=== PATIENT | female | born 1965 | race Caucasian/White ===

== ENCOUNTER 2016-11-07 12:56 | Emergency (ER) | payer BC ==
[~2016-11-07] VITALS: Ht 162.6 cm; Wt 91.5 kg
[~2016-11-07 12:56] MED LIST: ADVAIR 250/501 DISK IH; FLUOXETINE HCL40 MG PO; LISINOPRIL30 MG PO; OMEPRAZOLE40 M1 PO
[2016-11-07 13:08] VITALS: BP 171/103
== END 2016-11-07 15:22 | disposition left against medical advice (07) ==
LOC: EME 12:56
DX: R93.0 Abnormal findings on diagnostic imaging of skull and head, not elsewhere classified (principal); R51 Headache; H43.399 Other vitreous opacities, unspecified eye; R41.0 Disorientation, unspecified; Z53.21 Procedure and treatment not carried out due to patient leaving prior to being seen by health care provider
CPT/HCPCS: 71020; 80048; 85027

== ENCOUNTER 2016-11-26 17:32 | Observation (INO) | payer BC ==
[~2016-11-26] VITALS: Ht 162.6 cm; Wt 91.7 kg
[2016-11-26 18:40] LABS: BASOPHIL COUNT 0.1 K/uL (0-0.1); EOSINOPHIL (%) 1.7 % (0-5); EOSINOPHIL COUNT 0.2 K/uL (0-0.3); HEMATOCRIT 38.8 % (36.0-46.0); IMMATURE GRANULOCYTE (%) 0.3 % (0.0-0.7); INSTRUMENT ABS NEUTROPHIL CT 5.6 K/uL; LYMPHOCYTE COUNT 3.9 K/uL (1.0-2.8); MCHC 31.7 G/DL (30.0-36.0); MCV 85.3 FL (83-99); MONOCYTE (%) 6.3 % (3-12); MONOCYTE COUNT 0.7 K/uL (0-0.8); NEUTROPHIL (%) 53.6 % (45-76); NEUTROPHIL COUNT 5.6 K/uL (1.8-6.4); PLATELET COUNT 291 K/uL (156-360); RBC DIS.WIDTH-CV 12.6 % (11.8-14.6); RBC DIS.WIDTH-SD 38.8 % (39-53); RED BLOOD COUNT 4.55 M/uL (3.80-5.20); WHITE BLOOD COUNT 10.5 K/uL (4.1-10.2)
[2016-11-26 18:53] LABS: CHLORIDE 105 mEq/L (99-109); POTASSIUM 3.7 mEq/L (3.7-5.4); SODIUM 139 mEq/L (136-147)
[2016-11-26 18:54] LABS: MAGNESIUM 2.2 mg/dL (1.3-2.7)
[2016-11-26 18:55] LABS: GLUCOSE 100 mg/dL (70-99)
[2016-11-26 18:56] LABS: INTER. NORMALIZED RATIO 1.2; PROTHROMBIN TIME 12.3 (9.2-11.2); PTT 32.2 (25-32)
[2016-11-26 18:57] LABS: ANION GAP 12 MEQ/L (2-14)
[2016-11-26 18:59] LABS: GFR ESTIMATE (CALCULATED) > 59 mL/min/
[2016-11-26 19:00] LABS: UREA NITROGEN (BUN) 15 mg/dL (9-23)
[2016-11-26 19:02] LABS: TROP-I INTERPRETATION NEGATIVE; TROPONIN-I < 0.01 ng/mL (0.0-0.30)
[2016-11-26] MEDS ORDERED: NORVASC5 MG PO (21:57)
[2016-11-26] MEDS ORDERED: LIPITOR10 MG PO (21:58)
[2016-11-26] MEDS ORDERED: XARELTO15 MG PO (21:58)
[2016-11-26] MEDS ORDERED: HYDROCHLOROTHIA25 MG PO (21:58)
[2016-11-26] MEDS ORDERED: VALSARTAN160 MG PO (21:58)
[2016-11-26] MEDS ORDERED: CELECOXIB200 MG PO (21:59)
[2016-11-26] MEDS ORDERED: OMEPRAZOLE40 M1 PO (21:59)
[2016-11-26] MEDS ORDERED: PROZAC40 MG PO (22:00)
[2016-11-26 22:46] VITALS: BP 131/77
[2016-11-26 22:46] LABS: Estimated Average Glucose 128 mg/dL (70-123); HEMOGLOBIN A1c (GLYCOHEMOGLOB) 6.1 % HGB (Below 5.7)
[2016-11-26 22:52] LABS: HDL CHOLESTEROL 38 MG/DL (Desirable>=50); LDL CHOLESTEROL 77 mg/dL (Desirable<100); NON-HDL CHOLESTEROL 104 mg/dL (Desirable<160); TOTAL CHOLESTEROL 142 mg/dL (Desirable<200); TRIGLYCERIDES 134 MG/DL (Normal: <150)
[2016-11-27 00:11] LABS: ADD MIUA? YES; BILIRUBIN NEGATIVE; BLOOD SMALL; COLOR STRAW ((YELLOW)); GLUCOSE (STRIP) NEGATIVE; KETONES NEGATIVE; LEUKOCYTES NEGATIVE; NITRITE NEGATIVE; PROTEIN (STRIP) NEGATIVE; SPECIFIC GRAVITY 1.004 (1.000-1.030); UROBILINOGEN 0.2 MG/DL (0.2-1.0)
[2016-11-27 00:14] LABS: BACTERIA NONE SEEN /HPF; EPITHELIAL CELLS RARE /HPF; MUCUS NONE SEEN /LPF; UCUL ADDED? NO; WHITE BLOOD CELLS 0-5 /HPF (0-5)
[2016-11-27 00:16] LABS: RED BLOOD CELLS 15-20 /HPF (0-5)
[2016-11-27 00:46] VITALS: BP 106/67
[2016-11-27 03:44] VITALS: BP 94/57
[2016-11-27 05:13] LABS: HEMATOCRIT 37.2 % (36.0-46.0); MCH 26.6 PG (29.0-34.0); MCHC 30.9 G/DL (30.0-36.0); MCV 85.9 FL (83-99); MEAN PLAT.VOLUME 9.8 uM^3 (9.5-12.4); PLATELET COUNT 243 K/uL (156-360); RBC DIS.WIDTH-CV 12.7 % (11.8-14.6); RBC DIS.WIDTH-SD 39.7 % (39-53); RED BLOOD COUNT 4.33 M/uL (3.80-5.20); WHITE BLOOD COUNT 9.3 K/uL (4.1-10.2)
[2016-11-27 08:26] VITALS: BP 1220/73
[2016-11-27] MEDS ORDERED: COMBIVENT RESPIM4 GM IH (09:22)
[2016-11-27] MEDS ORDERED: PROAIR HFA8.5 GM IH (09:22)
[2016-11-27] MEDS ORDERED: LO-DOSE ASPIRIN81 M2 PO (09:22)
[2016-11-27 12:13] VITALS: BP 111/76
== END 2016-11-27 18:22 ==
LOC: EME 17:32 → 5WEST 21:16 → EDOF 21:16 → 5WEST 22:40
PROVIDERS: Emergency Medicine; Internal Medicine
DX: G45.9 Transient cerebral ischemic attack, unspecified (principal); J44.9 Chronic obstructive pulmonary disease, unspecified; I10 Essential (primary) hypertension; E78.5 Hyperlipidemia, unspecified; F41.9 Anxiety disorder, unspecified; F17.200 Nicotine dependence, unspecified, uncomplicated; I69.351 Hemiplegia and hemiparesis following cerebral infarction affecting right dominant side; I65.22 Occlusion and stenosis of left carotid artery
CPT/HCPCS: 70450; 70544; 70549; 70551; 71010; 80048; 80061; 81003; 83036; 83735; 84484; 85025; 85027; 85610; 85730; 93005; 93880; 99281; 99285; G0378; J2060